=== PATIENT | male | born 1965 | race Asian ===

== ENCOUNTER 2017-02-20 20:26 | Inpatient (IN) | payer OTHER ==
[~2017-02-20] VITALS: Ht 167.6 cm; Wt 67.1 kg
[2017-02-20 20:30] VITALS: BP_SYST 150
[2017-02-20] MEDS ORDERED: ASPIRIN 325 MG TABLET PO ONE (20:45)
[2017-02-20] MEDS ORDERED: NITROGLYCERIN 0.4 MG TAB.SUBL SL ONE (20:45)
[2017-02-20 21:27] LABS: BASOPHILS # (AUTO) 0.1 K/uL (0.0-0.2); BASOPHILS % (AUTO) 0.6 % (0.0-2.0); EOSINOPHILS # (AUTO) 0.3 K/uL (0.0-0.4); EOSINOPHILS % (AUTO) 3.3 % (0.0-4.0); HEMATOCRIT 38.9 % (36-54); HEMOGLOBIN 13.1 g/dL (14.0-18.0); LYMPHOCYTES # (AUTO) 2.9 K/uL (1.0-5.5); LYMPHOCYTES % (AUTO) 32.1 % (20.5-51.5); MEAN CORPUSCULAR HEMOGLOBIN 27 pg (27-31); MEAN CORPUSCULAR HGB CONC 34 % (32-36); MEAN CORPUSCULAR VOLUME 81 fL (79.0-98.0); MONOCYTES # (AUTO) 0.8 K/uL (0.0-1.0); MONOCYTES % (AUTO) 8.8 % (1.7-9.3); NEUTROPHILS # (AUTO) 5.1 K/uL (1.8-7.7); NEUTROPHILS % (AUTO) 55.2 % (40.0-70.0); PLATELET COUNT (AUTO) 314 K/uL (130-430); RED BLOOD CELL COUNT(AUTO) 4.79 MIL/uL (4.2-6.2); RED CELL DISTRIBUTION WIDTH 12.1 % (9.0-15.0); WHITE BLOOD COUNT (AUTO) 9.2 K/uL (4.8-10.8)
[2017-02-20] MEDS ORDERED: PANTOPRAZOLE SODIUM 40 MG/VIAL (PROTONIX) IVP ONE (21:30)
[2017-02-20] MEDS ORDERED: NACL 0.9% 1,000 ML IV ONE ×2 (21:30→23:00)
[2017-02-20] MEDS ORDERED: ONDANSETRON HCL 4 MG/2 ML VIAL IVP ONE (21:30)
[2017-02-20 21:42] LABS: CALCIUM 8.3 mg/dL (8.4-11.0); CREATININE 0.73 mg/dL (0.55-1.30); POTASSIUM 3.8 mmol/L (3.5-5.1)
[2017-02-20 21:47] LABS: ALBUMIN 3.3 g/dL (3.4-4.8); TOTAL BILIRUBIN 0.2 mg/dL (0.0-1.0)
[2017-02-20 21:50] LABS: INR 0.9 (0.80-1.20); PROTHROMBIN TIME 9.1 SECS (9.5-12.5)
[2017-02-20 22:08] LABS: BILIRUBIN,URINE NEGATIVE (NEGATIVE); BLOOD, URINE NEGATIVE (NEGATIVE); CLARITY/URINE CLEAR (CLEAR); COLOR,URINE YELLOW (YELLOW); GLUCOSE,URINE 3+ (NEGATIVE); KETONES,URINE NEGATIVE (NEGATIVE); LEUKOCYTE ESTERASE ,URINE NEGATIVE (NEGATIVE); NITRITE, URINE NEGATIVE (NEGATIVE); PROTEIN URINE NEGATIVE (NEGATIVE); UROBILINOGEN,URINE 0.2 (0.2-1.0)
[2017-02-20 22:30] LABS: BACTERIA,URINE FEW /HPF (None Seen); RBC,URINE 0-3 /HPF (0-3); WBC,URINE 0-3 /HPF (0-3)
[2017-02-20 22:31] LABS: MUCUS,URINE 1+ /LPF (None Seen)
[2017-02-20] MEDS ORDERED: MORPHINE 2 MG/ML INJ. SYRINGE IVP ONE (23:00)
[2017-02-20] MEDS ORDERED: INSU100V9 SUBCUT (23:36)
[2017-02-20] MEDS ORDERED: POTASSIUM CHLORIDE 10 MEQ in NACL 0.9% 1,000 ML IV ONE (23:45)
[2017-02-20] MEDS ORDERED: INSULIN REGULAR, HUMAN 10 UNITS/0.1 ML INJ SUBCUT ONE (23:45)
[2017-02-21] MEDS ORDERED: INSULIN ASPART 100 UNITS/ML, 10 ML VIAL (NovoLOG) SUBCUT PRN
[2017-02-21] MEDS ORDERED: INSULIN REGULAR, HUMAN 10 UNITS/0.1 ML INJ ONE (00:15)
[2017-02-21 00:38] VITALS: BP_SYST 158
[2017-02-21] MEDS ORDERED: KCL 20 mEq in 100 mL (PREMIX) 100 ML IV ONE (02:27)
[2017-02-21] MEDS ORDERED: FLU VACC QS 2017-18(36MOS+)/PF 0.5 ML/SYR SYRINGE I.M. PRN (02:45)
[2017-02-21 07:55] LABS: BASOPHILS % (AUTO) 0.1 % (0.0-2.0); EOSINOPHILS # (AUTO) 0.2 K/uL (0.0-0.4); EOSINOPHILS % (AUTO) 1.6 % (0.0-4.0); HEMATOCRIT 41.1 % (36-54); HEMOGLOBIN 13.4 g/dL (14.0-18.0); LYMPHOCYTES # (AUTO) 2.3 K/uL (1.0-5.5); LYMPHOCYTES % (AUTO) 15.4 % (20.5-51.5); MEAN CORPUSCULAR HEMOGLOBIN 27 pg (27-31); MEAN CORPUSCULAR HGB CONC 33 % (32-36); MEAN CORPUSCULAR VOLUME 82 fL (79.0-98.0); MONOCYTES # (AUTO) 1.1 K/uL (0.0-1.0); MONOCYTES % (AUTO) 7.7 % (1.7-9.3); NEUTROPHILS # (AUTO) 11.3 K/uL (1.8-7.7); PLATELET COUNT (AUTO) 283 K/uL (130-430); RED BLOOD CELL COUNT(AUTO) 5.02 MIL/uL (4.2-6.2); RED CELL DISTRIBUTION WIDTH 11.9 % (9.0-15.0); WHITE BLOOD COUNT (AUTO) 14.9 K/uL (4.8-10.8)
[2017-02-21 07:56] LABS: POTASSIUM 3.3 mmol/L (3.5-5.1)
[2017-02-21 07:57] LABS: BILIRUBIN,DIRECT 0.1 mg/dL (0.0-0.3); CALCIUM 7.6 mg/dL (8.4-11.0); CREATININE 0.64 mg/dL (0.55-1.30); TOTAL BILIRUBIN 0.2 mg/dL (0.0-1.0)
[2017-02-21 07:58] LABS: ALBUMIN 3.4 g/dL (3.4-4.8)
[2017-02-21 08:00] VITALS: BP_SYST 130
[2017-02-21 08:24] LABS: THYROID STIMULATING HORMONE 0.69 uIu/mL (0.34-4.82)
[2017-02-21] MEDS ORDERED: ONDANSETRON HCL 4 MG/2 ML VIAL IVP PRN (09:15)
[2017-02-21] MEDS ORDERED: ACETAMINOPHEN 325 MG TABLET PO PRN (09:15)
[2017-02-21] MEDS ORDERED: POTASSIUM CHLORIDE 30 MEQ in NS 250 ML IV ONE (09:15)
[2017-02-21 10:30] LABS: NEUTROPHILS % (AUTO) 75.2 % (40.0-70.0)
[2017-02-21] MEDS: KCL 20 mEq in NS 1000 mL 1,000 ML IV SCH ×2 (11:39→21:52)
[2017-02-21] MEDS: INSULIN ASPART 100 UNITS/ML, 10 ML VIAL (NovoLOG) SUBCUT PRN ×3 (11:42→21:51)
[2017-02-21 12:00] VITALS: BP_SYST 118
[2017-02-21 16:00] VITALS: BP_SYST 140
[2017-02-21] MEDS ORDERED: INSULIN GLARGINE 100 UNITS/ML 10 ML VIAL SUBCUT ONE (18:45)
[2017-02-21 19:20] VITALS: BP_SYST 147
[2017-02-21 20:00] VITALS: BP_SYST 147
[2017-02-22 01:07] VITALS: BP_SYST 148
[2017-02-22 05:33] VITALS: BP_SYST 154
[2017-02-22 06:54] LABS: BILIRUBIN,DIRECT 0.1 mg/dL (0.0-0.3); CALCIUM 7.6 mg/dL (8.4-11.0); CREATININE 0.49 mg/dL (0.55-1.30); POTASSIUM 3.8 mmol/L (3.5-5.1); TOTAL BILIRUBIN 0.2 mg/dL (0.0-1.0)
[2017-02-22] MEDS: INSULIN ASPART 100 UNITS/ML, 10 ML VIAL (NovoLOG) SUBCUT PRN ×3 (06:58→17:37)
[2017-02-22 07:02] LABS: BASOPHILS # (AUTO) 0.1 K/uL (0.0-0.2); BASOPHILS % (AUTO) 0.5 % (0.0-2.0); EOSINOPHILS # (AUTO) 0.1 K/uL (0.0-0.4); EOSINOPHILS % (AUTO) 0.7 % (0.0-4.0); HEMATOCRIT 40.6 % (36-54); HEMOGLOBIN 13.5 g/dL (14.0-18.0); LYMPHOCYTES % (AUTO) 18.3 % (20.5-51.5); MEAN CORPUSCULAR HEMOGLOBIN 27 pg (27-31); MEAN CORPUSCULAR HGB CONC 33 % (32-36); MEAN CORPUSCULAR VOLUME 82 fL (79.0-98.0); MONOCYTES # (AUTO) 0.5 K/uL (0.0-1.0); MONOCYTES % (AUTO) 4.1 % (1.7-9.3); NEUTROPHILS # (AUTO) 8.3 K/uL (1.8-7.7); NEUTROPHILS % (AUTO) 76.4 % (40.0-70.0); PLATELET COUNT (AUTO) 305 K/uL (130-430); RED BLOOD CELL COUNT(AUTO) 4.97 MIL/uL (4.2-6.2); RED CELL DISTRIBUTION WIDTH 12.7 % (9.0-15.0)
[2017-02-22 08:05] VITALS: BP_SYST 158
[2017-02-22] MEDS ORDERED: PANTOPRAZOLE SODIUM 40 MG TAB PO SCH (09:00)
[2017-02-22] MEDS: KCL 20 mEq in NS 1000 mL 1,000 ML IV SCH (11:49)
[2017-02-22 12:00] VITALS: BP_SYST 155
[2017-02-22 16:00] VITALS: BP_SYST 148
[2017-02-22] MEDS ORDERED: PRO40 PO (16:44)
[2017-02-22] MEDS ORDERED: INSU100V9 SQ (16:46)
[2017-02-22 17:42] VITALS: BP_SYST 148
== END 2017-02-22 18:30 | disposition home or self-care (01) | DRG 440 ==
LOC: SED 20:26 → STU 23:41
PROVIDERS: ADMIT Internal Medicine; ATTEND Internal Medicine
DX: K85.90 Acute pancreatitis without necrosis or infection, unspecified (principal); E11.9 Type 2 diabetes mellitus without complications; K86.1 Other chronic pancreatitis; I10 Essential (primary) hypertension; F17.200 Nicotine dependence, unspecified, uncomplicated; E87.6 Hypokalemia; Z88.0 Allergy status to penicillin; Z79.4 Long term (current) use of insulin
CPT/HCPCS: 36415; 71010; 76700-TC; 80048; 80053; 80076; 81000-TC; 82150-TC; 82550-TC; 82962; 83690-TC; 83735-TC; 83880; 84443-TC; 84484; 85025; 85610-TC; 87040-TC; 87086; 93005; 96361; 96374; 96375; 99285; C9113; J1815; J2270; J2405; J3480; J7030; J7050; Q2037

== ENCOUNTER 2017-03-30 21:38 | Inpatient (IN) | payer OTHER ==
[~2017-03-30] VITALS: Ht 167.6 cm; Wt 63.5 kg
[~2017-03-30 21:38] MED LIST: INSU100V9 SQ; PRO40 PO
[2017-03-30 21:41] VITALS: BP_SYST 160
[2017-03-30] MEDS ORDERED: NACL 0.9% 1,000 ML IV ONE ×2 (21:50→22:41)
[2017-03-30] MEDS ORDERED: ASPIRIN 81 MG TAB.CHEW PO ONE (22:00)
[2017-03-30] MEDS ORDERED: PANTOPRAZOLE SODIUM 40 MG/VIAL (PROTONIX) ONE (22:14)
[2017-03-30] MEDS ORDERED: PANTOPRAZOLE SODIUM 40 MG/VIAL (PROTONIX) IVP ONE (22:15)
[2017-03-30 22:35] LABS: BASOPHILS % (AUTO) 0.5 % (0.0-2.0); EOSINOPHILS # (AUTO) 0.3 K/uL (0.0-0.4); EOSINOPHILS % (AUTO) 3.6 % (0.0-4.0); HEMATOCRIT 40.4 % (36-54); HEMOGLOBIN 13.1 g/dL (14.0-18.0); LYMPHOCYTES # (AUTO) 2.6 K/uL (1.0-5.5); LYMPHOCYTES % (AUTO) 33.3 % (20.5-51.5); MEAN CORPUSCULAR HEMOGLOBIN 27 pg (27-31); MEAN CORPUSCULAR HGB CONC 33 % (32-36); MEAN CORPUSCULAR VOLUME 83 fL (79.0-98.0); MONOCYTES # (AUTO) 0.6 K/uL (0.0-1.0); MONOCYTES % (AUTO) 7.7 % (1.7-9.3); NEUTROPHILS # (AUTO) 4.3 K/uL (1.8-7.7); NEUTROPHILS % (AUTO) 54.9 % (40.0-70.0); PLATELET COUNT (AUTO) 367 K/uL (130-430); RED BLOOD CELL COUNT(AUTO) 4.88 MIL/uL (4.2-6.2); RED CELL DISTRIBUTION WIDTH 12.1 % (9.0-15.0); WHITE BLOOD COUNT (AUTO) 7.8 K/uL (4.8-10.8)
[2017-03-30 22:38] LABS: ANION GAP 10 (5-15); CALCIUM 8.5 mg/dL (8.4-11.0); CHLORIDE 97 mmol/L (98-107); CREATININE 0.95 mg/dL (0.55-1.30); POTASSIUM 4.2 mmol/L (3.5-5.1); SODIUM SERUM 133 mmol/L (136-145); UREA NITROGEN, BLOOD 22 mg/dL (8-21)
[2017-03-30 22:41] LABS: GFR AFRICAN AMERICAN 108 mL/min (>90)
[2017-03-30 22:42] LABS: INR 0.9 (0.80-1.20); PROTHROMBIN TIME 9.4 SECS (9.5-12.5)
[2017-03-30 22:47] LABS: ALANINE AMINOTRANSFERASE 21 U/L (12-78); ALBUMIN 3.5 g/dL (3.4-4.8); ASPARTATE AMINOTRANSFERASE 14 U/L (10-37); TOTAL BILIRUBIN 0.4 mg/dL (0.0-1.0)
[2017-03-30] MEDS ORDERED: INSU100V9 SUBCUT (22:47)
[2017-03-30] MEDS ORDERED: METF1000 PO (22:47)
[2017-03-30 22:49] LABS: GLUCOSE 458 mg/dL (70-99)
[2017-03-30] MEDS ORDERED: MORPHINE 2 MG/ML INJ. SYRINGE IVP ONE (23:15)
[2017-03-30] MEDS ORDERED: ONDANSETRON HCL 4 MG/2 ML VIAL IVP ONE (23:15)
[2017-03-31] MEDS ORDERED: INSULIN REGULAR, HUMAN 100 UNITS/ML, 10 ML VIAL (novoLIN R) ONE (04:19)
[2017-03-31 07:32] VITALS: BP_SYST 112
[2017-03-31] MEDS ORDERED: FLU VACC QS 2017-18(36MOS+)/PF 0.5 ML/SYR SYRINGE I.M. PRN (08:00)
[2017-03-31] MEDS: INSULIN REGULAR, HUMAN 100 UNITS/ML, 10 ML VIAL (novoLIN R) SUBCUT PRN ×4 (08:24→20:33)
[2017-03-31] MEDS: ASPIRIN 81 MG TAB.CHEW PO SCH (08:29)
[2017-03-31] MEDS ORDERED: INSULIN GLARGINE 100 UNITS/ML 10 ML VIAL SUBCUT SCH (10:30)
[2017-03-31 13:07] VITALS: BP_SYST 156
[2017-03-31 16:40] VITALS: BP_SYST 95
[2017-03-31 18:42] LABS: LIPASE 320 U/L (73-393)
[2017-03-31 19:00] VITALS: BP_SYST 133
[2017-03-31 20:00] VITALS: BP_SYST 133
[2017-04-01 00:30] VITALS: BP_SYST 154
[2017-04-01] MEDS: INSULIN REGULAR, HUMAN 100 UNITS/ML, 10 ML VIAL (novoLIN R) SUBCUT PRN ×2 (06:36→12:45)
[2017-04-01 08:05] VITALS: BP_SYST 114
[2017-04-01] MEDS ORDERED: metFORMIN HCL 500 MG TABLET PO SCH (09:00)
[2017-04-01] MEDS ORDERED: PANTOPRAZOLE SODIUM 40 MG TAB PO SCH (09:00)
[2017-04-01] MEDS: ASPIRIN 81 MG TAB.CHEW PO SCH (09:06)
[2017-04-01 12:42] VITALS: BP_SYST 127
[2017-04-01] MEDS ORDERED: CLAR500T PO (14:44)
[2017-04-01] MEDS ORDERED: PHEDM120 PO (14:45)
[2017-04-01 16:24] VITALS: BP_SYST 148
== END 2017-04-01 17:00 | disposition home or self-care (01) | DRG 312 ==
LOC: SED 21:38 → STU 03-31 03:15
PROVIDERS: ADMIT Internal Medicine; ATTEND Internal Medicine
DX: R55 Syncope and collapse (principal); E11.65 Type 2 diabetes mellitus with hyperglycemia; I10 Essential (primary) hypertension; F17.200 Nicotine dependence, unspecified, uncomplicated; K21.9 Gastro-esophageal reflux disease without esophagitis; F19.10 Other psychoactive substance abuse, uncomplicated; R07.89 Other chest pain; J04.10 Acute tracheitis without obstruction; Z91.19 Patient's noncompliance with other medical treatment and regimen; Z79.899 Other long term (current) drug therapy; Z88.0 Allergy status to penicillin; Z79.4 Long term (current) use of insulin; Z71.6 Tobacco abuse counseling
CPT/HCPCS: 36415; 71010; 80053; 82009-TC; 82962; 83690-TC; 84484; 85025; 85379; 85610-TC; 85730-TC; 87081; 93005; 93306; 96361; 96374; 96375; 99285; C9113; J1815; J2270; J2405; J7030; Q2037